=== PATIENT | female | born 1985 | race African-American/Black ===

== ENCOUNTER 2016-12-01 09:19 | Emergency (ER) | payer OTHER ==
[~2016-12-01] VITALS: Ht 180.3 cm; Wt 84.8 kg
[2016-12-01 09:49] VITALS: BP 119/68
[2016-12-01 10:33] LABS: BASOPHILS # (AUTO) 0.1 /CMM (0.0-0.2); BASOPHILS % (AUTO) 2.1 % (0.0-2.0); DIFF TOTAL % 100 %; EOSINOPHILS # (AUTO) 0.2 /CMM (0.0-0.7); EOSINOPHILS % (AUTO) 3.7 % (0.0-6.0); HEMATOCRIT 38 % (33-45); HEMOGLOBIN 12.5 g/dL (11.5-14.8); LYMPHOCYTES # (AUTO) 1.2 /CMM (0.8-4.8); LYMPHOCYTES % (AUTO) 23.6 % (20.0-44.0); MEAN CORPUSCULAR HEMOGLOBIN 30 PG (26.0-33.0); MEAN CORPUSCULAR HGB CONC 33 g/dl (31.0-36.0); MEAN CORPUSCULAR VOLUME 90 fL (82-100); MONOCYTES # (AUTO) 0.5 /CMM (0.1-1.30); MONOCYTES % (AUTO) 9.9 % (2.0-12.0); NEUTROPHILS % (AUTO) 60.7 % (43.0-81.0); PLATELET COUNT (AUTO) 159 /CMM (150-450); RED BLOOD CELL COUNT(AUTO) 4.24 MIL/uL (4.0-5.2)
[2016-12-01 10:41] LABS: CALCIUM, SERUM 8.4 mg/dL (8.5-10.1); CREATININE 0.7 mg/dL (0.6-1.3); POTASSIUM 4.2 mmol/L (3.5-5.1)
== END 2016-12-01 11:19 | disposition home or self-care (01) ==
LOC: ER 09:26
DX: R06.02 Shortness of breath (principal); Z88.1 Allergy status to other antibiotic agents; Z88.6 Allergy status to analgesic agent
CPT/HCPCS: 36415; 71010-TC; 80048-TC; 85025-TC; 85378-TC; A4606; Z7610

== ENCOUNTER 2016-12-08 20:38 | Emergency (ER) | payer OTHER ==
[~2016-12-08] VITALS: Ht 180.3 cm; Wt 85.7 kg
[2016-12-08] MEDS ORDERED: LORAZEPAM 1 MG TABLET ONE (22:00)
[2016-12-08] MEDS ORDERED: LORAZEPAM 0.5 MG TABLET PO ONE (22:00)
[2016-12-08 23:25] VITALS: BP 127/63
== END 2016-12-08 23:26 | disposition home or self-care (01) ==
LOC: ER 20:38
DX: R07.89 Other chest pain (principal); F41.9 Anxiety disorder, unspecified; Z88.1 Allergy status to other antibiotic agents; Z88.6 Allergy status to analgesic agent
CPT/HCPCS: 93005; 99283; A4606; Z7610

== ENCOUNTER 2017-12-29 18:05 | Emergency (ER) | payer OTHER ==
[~2017-12-29] VITALS: Ht 180.3 cm; Wt 85.7 kg
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
[2017-12-29] MEDS ORDERED: IBUPROFEN 600 MG TABLET PO ONE ×2 (18:29→18:30)
--- NOTE | 2017-12-29 18:40 | NUR ---
pt to xray
--- NOTE | 2017-12-29 19:10 | NUR ---
REPORT GIVEN TO JUAN R TORRES.
--- NOTE | 2017-12-29 20:23 | NUR ---
Patient discharged to home in stable condition. Written and verbal after care instructions given. Patient verbalizes understanding of instruction. PT ambulatory with a steady gait VITAL SIGNS WITHIN NORMAL LIMITS.
--- NOTE | 2017-12-29 20:41 | NUR ---
Patient discharged to home in stable condition. Written and verbal after care instructions given. Patient verbalizes understanding of instruction. VSS upon discharge.
[2017-12-29 20:42] VITALS: BP 127/77
== END 2017-12-29 20:23 | disposition home or self-care (01) ==
LOC: ER 18:08
DX: S16.1XXA Strain of muscle, fascia and tendon at neck level, initial encounter (principal); F10.10 Alcohol abuse, uncomplicated; M54.6 Pain in thoracic spine; Z88.1 Allergy status to other antibiotic agents; Z88.5 Allergy status to narcotic agent; V49.49XA Driver injured in collision with other motor vehicles in traffic accident, initial encounter; Y93.89 Activity, other specified; Y92.89 Other specified places as the place of occurrence of the external cause; Y99.8 Other external cause status
CPT/HCPCS: 72040; 99284; A4606; J7030; Z7610

== ENCOUNTER 2018-02-12 02:16 | Emergency (ER) | payer OTHER ==
[~2018-02-12] VITALS: Ht 180.3 cm; Wt 84.4 kg
[2018-02-12 02:36] VITALS: BP 133/91
[2018-02-12] MEDS ORDERED: IBUPROFEN 400 MG TABLET PO ONE (03:00)
[2018-02-12] MEDS ORDERED: IBUPROFEN 400 MG TABLET ONE (03:12)
== END 2018-02-12 03:19 | disposition home or self-care (01) ==
LOC: ER 02:19
DX: M54.2 Cervicalgia (principal); R07.89 Other chest pain; F10.10 Alcohol abuse, uncomplicated; M62.838 Other muscle spasm; Z88.1 Allergy status to other antibiotic agents; Z88.5 Allergy status to narcotic agent
CPT/HCPCS: A4606; Z7610

== ENCOUNTER 2018-09-08 12:24 | Emergency (ER) | payer OTHER ==
[~2018-09-08] VITALS: Ht 180.3 cm; Wt 80.3 kg
--- NOTE | 2018-09-08 12:30 | NUR ---
PT BIBSELF c/o sob x 3 weeks, excessive yawning and headache. PT DENIES PAIN OR DISCOMFORT AT THIS TIME. PT ON MONITOR IN BED 12. WILL CONTINUE TO MONITOR.
--- NOTE | 2018-09-08 12:45 | NUR ---
TECH AT BEDSIDE FOR EKG
[2018-09-08 13:04] LABS: BASOPHILS % (AUTO) 1.4 % (0.0-2.0); EOSINOPHILS % (AUTO) 2.6 % (0.0-6.0); HEMATOCRIT 39 % (33-45); HEMOGLOBIN 12.9 g/dL (11.5-14.8); LYMPHOCYTES % (AUTO) 33.7 % (20.0-44.0); MEAN CORPUSCULAR HGB CONC 33 g/dl (31.0-36.0); MEAN CORPUSCULAR VOLUME 90 fL (82-100); MONOCYTES # (AUTO) 0.3 /CMM (0.1-1.30); MONOCYTES % (AUTO) 8.3 % (2.0-12.0); NEUTROPHILS # (AUTO) 1.6 /CMM (1.8-8.9); PLATELET COUNT (AUTO) 180 /CMM (150-450); RED BLOOD CELL COUNT(AUTO) 4.37 MIL/uL (4.0-5.2)
[2018-09-08 13:22] LABS: CALCIUM, SERUM 9.2 mg/dL (8.5-10.1); CARBON DIOXIDE 26 mmol/L (21-32); CHLORIDE 103 mmol/L (98-107); CREATININE 0.9 mg/dL (0.6-1.3); GLUCOSE 93 mg/dL (74-106); POTASSIUM 3.5 mmol/L (3.5-5.1); SODIUM SERUM 140 mmol/L (136-145); UREA NITROGEN, BLOOD 22 mg/dL (7-18)
[2018-09-08 13:29] LABS: ALANINE AMINOTRANSFERASE 18 U/L (12-78); ALBUMIN 3.9 g/dL (3.4-5.0); ALKALINE PHOSPHATASE 62 U/L (46-116); ASPARTATE AMINOTRANSFERASE 18 U/L (15-37); BILIRUBIN,DIRECT 0.1 mg/dL (0.0-0.2); BILIRUBIN,TOTAL 0.7 mg/dL (0.2-1.0); TOTAL PROTEIN, SERUM 8.1 g/dL (6.4-8.2)
[2018-09-08 13:41] LABS: D-DIMER 0.46 mg/L(FEU (0.17-0.50)
--- NOTE | 2018-09-08 14:19 | NUR ---
Patient discharged to home in stable condition. Written and verbal after care instructions given. Patient verbalizes understanding of instruction. VSS.
[2018-09-08 14:22] VITALS: BP 121/71
== END 2018-09-08 14:23 | disposition home or self-care (01) ==
LOC: ER 12:25
DX: R06.02 Shortness of breath (principal); R51 Headache; Z88.1 Allergy status to other antibiotic agents; Z88.6 Allergy status to analgesic agent
CPT/HCPCS: 36415; 71045-TC; 80048-TC; 80076-TC; 84484-TC; 84702-TC; 85025-TC; 85378-TC; 85730-TC; A4606; Z7610